=== PATIENT | female | born 2000 | race Caucasian/White ===

== ENCOUNTER 2025-01-23 09:10 | Emergency (ER) | payer SELFPAY ==
[2025-01-23] MEDS: Amoxicillin/Clavulanate K 875-125 MG Tab PO ONE (09:59)
[2025-01-23] MEDS: Acetaminophen 325 MG Tab PO ONE (09:59)
== END 2025-01-23 10:13 | disposition home or self-care (01) ==
LOC: MW.ED 09:10
DX: K04.7 Periapical abscess without sinus (principal); Z79.899 Other long term (current) drug therapy
CPT/HCPCS: 99283; A9270

== ENCOUNTER 2025-03-26 20:59 | Emergency (ER) | payer SELFPAY | END 2025-03-27 01:02 | disposition home or self-care (01) | LOC: MW.ED 20:59 | DX: M25.562 Pain in left knee (principal) | CPT/HCPCS: 93971-26-LT; 93971-LT; 99282; 99283 ==

== ENCOUNTER 2025-04-20 07:50 | Emergency (ER) | payer SELFPAY ==
[2025-04-20] MEDS: Amoxicillin/Clavulanate K 875-125 MG Tab PO ONE (08:42)
== END 2025-04-20 08:48 | disposition home or self-care (01) ==
LOC: MW.ED 07:50
DX: K04.7 Periapical abscess without sinus (principal); F17.210 Nicotine dependence, cigarettes, uncomplicated; Z79.899 Other long term (current) drug therapy
CPT/HCPCS: 99282; A9270; 99283

== ENCOUNTER 2025-05-02 15:43 | Emergency (ER) | payer SELFPAY | END 2025-05-02 16:21 | disposition home or self-care (01) | LOC: MW.ED 15:43 | DX: S02.5XXA Fracture of tooth (traumatic), initial encounter for closed fracture (principal); K04.7 Periapical abscess without sinus; F17.200 Nicotine dependence, unspecified, uncomplicated; X58.XXXA Exposure to other specified factors, initial encounter | CPT/HCPCS: 99282 ==

== ENCOUNTER 2025-06-01 21:27 | Emergency (ER) | payer SELFPAY ==
[2025-06-01 22:01] LABS: APPEARANCE,URINE CLEAR; GLUCOSE,URINE NEGATIVE (NEGATIVE); OCCULT BLOOD,URINE NEGATIVE (NEGATIVE)
[2025-06-01 22:20] LABS: EPITHELIAL CELLS,URINE FEW (NONE-FEW)
[2025-06-01 22:51] LABS: CANDIDA DNA PROBE NEGATIVE (NEGATIVE); GARDNERELLA DNA PROBE POSITIVE (NEGATIVE); TRICHOMONAS DNA PROBE NEGATIVE (NEGATIVE)
[2025-06-01 23:34] LABS: C. TRACHOMATIS BY PCR NOT DETECTED; N. GONORRHOEAE BY PCR NOT DETECTED
[2025-06-02] MEDS: Nitrofurantoin Monohydrate/Macrocrystalline 100 MG Cap PO ONE (00:09)
== END 2025-06-02 00:14 | disposition home or self-care (01) ==
LOC: MW.ED 21:27
DX: N76.0 Acute vaginitis (principal); N39.0 Urinary tract infection, site not specified; Z75.3 Unavailability and inaccessibility of health-care facilities; Z79.899 Other long term (current) drug therapy
CPT/HCPCS: 81001; 81025; 87086; 87088; 87186; 87480; 87491; 87510; 87591; 87660; 99283; A9270